=== PATIENT | male | born 1945 | race Caucasian/White ===

== ENCOUNTER 2016-11-18 18:04 | Emergency (ER) | payer MEDICARE, MEDICAID ==
[2016-11-18 20:05] LABS: Hematocrit 42 % (42-52); Hemoglobin 13.9 g/dl (14.0-18.0); Mean Corpuscular HGB Conc 33 g/dl (31-36); Mean Corpuscular Hemoglobin 32 pg (27-31); Mean Corpuscular Volume 98 fL (80-94); Mean Platelet Volume 8 um3 (7.4-10.4); Red Blood Count 4.31 10^6/ul (4.0-5.4); Red Cell Distribution Width 14 % (10.5-15); White Blood Count 3.8 10^3/ul (3.5-10.8)
[2016-11-18 20:20] LABS: BUN/Creatinine Ratio 20.2 (8-20); Calcium 8.6 mg/dL (8.6-10.3); EGFR African American 81.4 (>60); EGFR Non-African American 63.3 (>60); Globulin 2.9 g/dL (2-4); Potassium 3.5 mmol/L (3.5-5.0); Total Bilirubin 0.6 mg/dL (0.2-1.0); Total Protein 6.9 g/dL (6.4-8.9)
[2016-11-18 20:27] LABS: Troponin I 0.04 ng/mL (<0.04)
[2016-11-18 20:50] LABS: TSH (Thyroid Stimulating Horm) 3.25 mcIU/mL (0.34-5.60)
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
--- NOTE | 2016-11-19 05:58 | ED ---
Robert Dorado Matthew, scribed for Suleman Grover on 11/19/16 at 0556 . Progress - Progress Note Progress Note: The patient is a sign out from Dr. Vargas. He is in stable condition and will be discharged home when sober. Re-Evaluation - Re-Evaluation First Eval Re-Evaluation Time: 19:31 Comment: Further workup reveals that pt has a pacemaker. Pt continues to have no medical complaints at this time. Course/Dx - Diagnoses Provider Diagnoses: Alcohol intoxication The documentation as recorded by the Robert crews Matthew accurately reflects the service I personally performed and the decisions made by , Suleman Grover.
[2016-11-19 07:56] LABS: Urine Bilirubin Negative (Negative); Urine Glucose Negative (Negative); Urine Nitrite Negative (Negative)
[2016-11-19 10:56] VITALS: BP 131/69
--- NOTE | 2016-11-19 14:03 | ED ---
Frances Dorado Rebecca, scribed for Roger Lincoln MD on 11/19/16 at 1034 . Progress - Progress Note Progress Note: The pt was signed out from Dr. Grover. VITAL SIGNS: Reviewed. GENERAL: Patient is a well developed and nourished male who is lying comfortable in the stretcher. Patient is not in any acute respiratory distress. HEAD AND FACE: No signs of trauma. No ecchymosis, hematomas or skull depressions. No sinus tenderness. EYES: PERRLA, EOMI x 2, No injected conjunctiva, no nystagmus. No photophobia. EARS: Hearing grossly intact. Ear canals and tympanic membranes are within normal limits. MOUTH: Oropharynx within normal limits. NECK: Supple, trachea is midline, no adenopathy, no JVD, no carotid bruit, no c- spine tenderness, neck with full ROM. No meningeal signs, no Kernig's or brudzinskis signs. CHEST: Symmetric, no tenderness at palpation LUNGS: Clear to auscultation bilaterally. No wheezing or crackles. CVS: Regular rate and rhythm, S1 and S2 present, no murmurs or gallops appreciated. ABDOMEN: Soft, non-tender. No signs of distention. No rebound no guarding, and no masses palpated. Bowel sounds are normal. EXTREMITIES: FROM in all major joints, no edema, no cyanosis or clubbing. NEURO: Alert and oriented x 3. No acute neurological deficits. Speech is normal and follows commands. SKIN: Dry and warm The pt is AxOx3 and hemodynamically stable. He is sober, eating and drinking and has a good and steady walk. Therefore, pt will be D/C to home with a followup with his PCP. Course/Dx - Diagnoses Provider Diagnoses: Alcohol intoxication The documentation as recorded by the Frances crews Rebecca accurately reflects the service I personally performed and the decisions made by Salazar marquez Walter, MD.
== END 2016-11-19 10:55 | disposition home or self-care (01) ==
LOC: ED 18:04
DX: F10.129 Alcohol abuse with intoxication, unspecified (principal); Y90.8 Blood alcohol level of 240 mg/100 ml or more; Z87.891 Personal history of nicotine dependence; I48.92 Unspecified atrial flutter; Z95.0 Presence of cardiac pacemaker
CPT/HCPCS: 36415; 80053; 80320; 81003; 83605; 84443; 84484; 85025; 85610; 93005; 99284; G0480

== ENCOUNTER 2016-12-13 00:59 | Emergency (ER) | payer MEDICARE, MEDICAID ==
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
[2016-12-13 06:32] VITALS: BP 140/77
== END 2016-12-13 06:32 | disposition home or self-care (01) ==
LOC: ED 00:59
DX: F10.129 Alcohol abuse with intoxication, unspecified (principal); Z87.891 Personal history of nicotine dependence
CPT/HCPCS: 99282

== ENCOUNTER 2017-05-02 19:50 | Emergency (ER) | payer MEDICARE, MEDICAID ==
[2017-05-02] MEDS ORDERED: LORazepam INJ* 2 MG/ML 1 ML VIAL IM ONE (20:40)
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
[2017-05-03 05:05] VITALS: BP 114/76
--- NOTE | 2017-05-03 08:02 | ED ---
Progress - Progress Note Progress Note: pt received in sign out after evaluation for alcohol intoxication. Pt was brought in by [employer] for intoxication. Pt slept and ate. 0800: pt awake, standing in room, has no complaints. Is agreeable to discharge. Clinically sober. Will arrange transportation for pt. to what he considers "home". dx: alcohol intoxication disposition: home condition at discharge: stable Course/Dx - Course Course Of Treatment: Mr. Longoria was brought in 2208. He admitted to drinking ETOH. He is homeless. He is currently sleeping and will be D/C'd when he is awake and sober. - Diagnoses Provider Diagnoses: Alcohol intoxication
== END 2017-05-03 09:00 | disposition home or self-care (01) ==
LOC: ED 19:50
DX: F10.129 Alcohol abuse with intoxication, unspecified (principal); Y90.9 Presence of alcohol in blood, level not specified
CPT/HCPCS: 96372; 99283; J2060

== ENCOUNTER → 2017-05-06 14:59 | Emergency (ER) | payer MEDICARE, MEDICAID ==
[~2017-05-06 14:59] MED LIST: Tetan/Diph/Pertus SYR(Tdap)* 0.5 ML SYR(BOOSTRIX) use SYR IM ONE
[2017-05-06 16:03] VITALS: BP 176/93
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
== END | disposition home or self-care (01) ==
LOC: ED 14:59
DX: S01.01XA Laceration without foreign body of scalp, initial encounter (principal); S09.90XA Unspecified injury of head, initial encounter; Z87.891 Personal history of nicotine dependence; Y00.XXXA Assault by blunt object, initial encounter; Y92.009 Unspecified place in unspecified non-institutional (private) residence as the place of occurrence of the external cause; F10.129 Alcohol abuse with intoxication, unspecified
CPT/HCPCS: 12001; 70450; 90471; 90715; 99282

== ENCOUNTER 2017-07-02 21:17 | Emergency (ER) | payer MEDICARE, MEDICAID ==
[2017-07-02] MEDS ORDERED: Tetan/Diph/Pertus SYR(Tdap)* 0.5 ML SYR(BOOSTRIX) use SYR IM ONE (21:55)
[2017-07-02 22:36] LABS: Hematocrit 39 % (42-52); Hemoglobin 13.3 g/dl (14.0-18.0); Mean Corpuscular HGB Conc 34 g/dl (31-36); Mean Corpuscular Hemoglobin 34 pg (27-31); Mean Corpuscular Volume 101 fL (80-94); Mean Platelet Volume 8 um3 (7.4-10.4); Red Cell Distribution Width 13 % (10.5-15); White Blood Count 4.3 10^3/ul (3.5-10.8)
[2017-07-02 22:51] LABS: Albumin 3.7 g/dL (3.2-5.2); BUN/Creatinine Ratio 17.6 (8-20); Calcium 8.4 mg/dL (8.6-10.3); EGFR African American 86.4 (>60); EGFR Non-African American 67.2 (>60); Globulin 2.9 g/dL (2-4); Potassium 4.1 mmol/L (3.5-5.0); Total Bilirubin 0.7 mg/dL (0.2-1.0); Total Protein 6.6 g/dL (6.4-8.9); Troponin I 0.03 ng/mL (<0.04)
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
[2017-07-03] MEDS ORDERED: Cephalexin CAP* 500 MG PO ONE (01:05)
[2017-07-03 01:18] VITALS: BP 135/74
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
== END 2017-07-03 01:16 | disposition short-term general hospital (02) ==
LOC: ED 21:17
DX: S02.80XA Fracture of other specified skull and facial bones, unspecified side, initial encounter for closed fracture (principal); S02.40CA Maxillary fracture, right side, initial encounter for closed fracture; S02.2XXA Fracture of nasal bones, initial encounter for closed fracture; S05.31XA Ocular laceration without prolapse or loss of intraocular tissue, right eye, initial encounter; Z87.891 Personal history of nicotine dependence; W19.XXXA Unspecified fall, initial encounter; Y93.9 Activity, unspecified; Y92.9 Unspecified place or not applicable
CPT/HCPCS: 36415; 70450; 70486; 80053; 80320; 84484; 85025; 90471; 99284; A9270-GY; G0480

== ENCOUNTER 2017-08-13 19:47 | Emergency (ER) | payer MEDICARE, MEDICAID ==
[2017-08-13] MEDS ORDERED: NS 0.9% 1000 ML* 1,000 ML IV ONE (20:35)
[2017-08-13 21:25] LABS: Hematocrit 37 % (42-52); Hemoglobin 12.4 g/dl (14.0-18.0); Mean Corpuscular HGB Conc 33 g/dl (31-36); Mean Corpuscular Hemoglobin 34 pg (27-31); Mean Corpuscular Volume 101 fL (80-94); Mean Platelet Volume 9 um3 (7.4-10.4); Red Blood Count 3.68 10^6/ul (4.0-5.4); Red Cell Distribution Width 15 % (10.5-15); White Blood Count 6.3 10^3/ul (3.5-10.8)
--- NOTE | 2017-08-13 21:29 | RAD ---
INDICATION: Right foot pain/infection COMPARISON: None. TECHNIQUE: 3 views of the right foot were obtained. FINDINGS: The adequately corticated bones are properly aligned. Joint spaces appear maintained. No fracture, dislocation or focal bony abnormality is seen. There is moderate calcified atherosclerosis overlying the distal infrapopliteal arteries continuing into the pedal arteries. IMPRESSION: 1. NO ACUTE BONY ABNORMALITIES. 2. INCIDENTALLY NOTED IS COARSELY CALCIFIED ATHEROSCLEROSIS OF THE VISUALIZED ARTERIES. PLEASE CORRELATE TO SIGNS AND SYMPTOMS OF ARTERIAL INSUFFICIENCY. If the patient's symptoms persist, follow-up imaging is recommended.
[2017-08-13 21:36] LABS: C Reactive Protein 34.24 mg/L (< 5.00); Calcium 8.4 mg/dL (8.6-10.3); EGFR African American 94.5 (>60); EGFR Non-African American 73.5 (>60); Potassium 3.6 mmol/L (3.5-5.0); Total Bilirubin 1.5 mg/dL (0.2-1.0)
[2017-08-13] MEDS ORDERED: CMCS:Ketoconazole 2 % CREAM (NF) 30 GM TUBE TOPICAL SCH (22:00)
[2017-08-13 23:15] VITALS: BP 117/46
--- NOTE | 2017-08-20 00:58 | ED ---
Ese Dorado Abhishek, scribed for Evangelist Elaine MD on 08/13/17 at 2050 . Lower Extremity - HPI Summary HPI Summary: This patient is a 72 year old M presenting to [facility] with a chief complaint of right lower extremity skin complaint since 08/12/17. Pt states there were blood in his right sock and patient covered foot with plastic bag. Patient states he walks everywhere and for long periods of time. The patient rates the pain 4/10 in severity. Symptoms aggravated by ambulation. Symptoms alleviated by nothing. Patient reports bleeding from right pedal region and pain in right foot when palpated. - History of Current Complaint Chief Complaint: EDExtremityLower Stated Complaint: RT FOOT INJURY Time Seen by Provider: 08/13/17 20:20 Hx Obtained From: Patient Onset of Pain: Days - 08/12/17 Onset/Duration: Days - since 08/12/17 Severity Initially: Moderate Severity Currently: Moderate Pain Intensity: 4 Pain Scale Used: 0-10 Numeric Timing: Constant, Lasting Days - since 08/12/17 Associated Signs And Symptoms: Positive: Negative Aggravating Factor(s): Ambulation Alleviating Factor(s): Nothing - Allergies/Home Medications Allergies/Adverse Reactions: Allergies Allergy/AdvReac Type Severity Reaction Status Date / Time No Known Allergies Allergy Verified 07/02/17 23:52 PMH/Surg Hx/FS Hx/Imm Hx Endocrine/Hematology History: Denies: Hx Anticoagulant Therapy, Hx Diabetes, Hx Thyroid Disease Cardiovascular History: Reports: Hx Pacemaker/ICD Denies: Hx Hypertension Respiratory History: Denies: Hx Asthma, Hx Chronic Obstructive Pulmonary Disease (COPD) History: Denies: Hx Renal Disease Neurological History: Denies: Hx Dementia, Hx Seizures Psychiatric History: Denies: Hx Substance Abuse - Surgical History Surgery Procedure, Year, and Place: OPEN HEART, PACER - Immunization History Date of Tetanus Vaccine: Unsure Date of Influenza Vaccine: HUBER Infectious Disease History: No Infectious Disease History: Denies: Hx Hepatitis, Hx Human Immunodeficiency Virus (HIV), Traveled Outside the [place] in Last 30 Days - Family History Known Family History: Positive: Other - Patient is a poor historian Negative: Cardiac Disease, Hypertension, Diabetes - Social History Occupation: Unemployed Lives: Alone - homeless Alcohol Use: Daily Alcohol Amount: "x2 22oz beers" Hx Substance Use: No Substance Use Type: Reports: None Hx Tobacco Use: Yes Smoking Status (MU): Former Smoker Review of Systems Constitutional: Negative Eyes: Negative ENT: Negative Cardiovascular: Negative Respiratory: Negative Genitourinary: Negative Musculoskeletal: Other - Right foot pain when palpated Skin: Other - Right lower extremity (pedal region) skin complaint Positive: Other - Bleeding in RLE pedal region Neurological: Negative Psychological: Normal All Other Systems Reviewed And Are Negative: Yes Physical Exam - Summary Physical Exam Summary: VITAL SIGNS: Reviewed. GENERAL: Patient is unkempt (MALE ) who is lying comfortable in the stretcher. Patient is not in any acute respiratory distress. HEAD AND FACE: No signs of trauma. No ecchymosis, hematomas or skull depressions. No sinus tenderness. EYES: PERRLA, EOMI x 2, No injected conjunctiva, no nystagmus. EARS: Hearing grossly intact. Ear canals and tympanic membranes are within normal limits. MOUTH: Oropharynx within normal limits. NECK: Supple, trachea is midline, no adenopathy, no JVD, no carotid bruit, no c- spine tenderness, neck with full ROM. CHEST: Symmetric, no tenderness at palpation LUNGS: Clear to auscultation bilaterally. No wheezing or crackles. CVS: Regular rate and rhythm, S1 and S2 present, no murmurs or gallops appreciated. ABDOMEN: Soft, non-tender. No signs of distention. No rebound no guarding, and no masses palpated. Bowel sounds are normal. EXTREMITIES: RLE is Swollen, tender, and macerated NEURO: Alert and oriented x 3. No acute neurological deficits. Speech is normal and follows commands. SKIN: Dry and warm Triage Information Reviewed: Yes Vital Signs On Initial Exam: Initial Vitals Temp Pulse Resp BP Pulse Ox 97.8 F 87 20 128/65 98 08/13/17 19:51 08/13/17 19:51 08/13/17 19:51 08/13/17 19:51 08/13/17 19:51 Vital Signs Reviewed: Yes Diagnostics - Vital Signs Vital Signs Temp Pulse Resp BP Pulse Ox 08/13/17 19:51 97.8 F 87 20 128/65 98 - Laboratory Result Diagrams: 08/13/17 21:05 08/13/17 21:05 Lab Statement: Any lab studies that have been ordered have been reviewed, and results considered in the medical decision making process. - Radiology Foot X-ray Radiology Interpretation Completed By: Radiologist - Foot X-ray reveals, per radiologist, 1. NO ACUTE BONY ABNORMALITIES. 2. INCIDENTALLY NOTED IS COARSELY CALCIFIED ATHEROSCLEROSIS OF THE VISUALIZED ARTERIES. PLEASE CORRELATE TO SIGNS AND SYMPTOMS OF ARTERIAL INSUFFICIENCY. If the patient's symptoms persist, follow-up imaging is recommended. ED physician has reviewed this radiology report and agrees. Lower Extremity Course/Dx - Course Course Of Treatment: This patient is a 72 year old M presenting to [facility] with a chief complaint of right lower extremity skin complaint since 08/12/17. Pt states there were blood in his right sock and patient covered foot with plastic bag. Patient states he walks everywhere and for long periods of time. Symptoms aggravated by ambulation. Symptoms alleviated by nothing. Patient reports bleeding from right pedal region. Foot X-ray reveals, per radiologist, 1. NO ACUTE BONY ABNORMALITIES.2. INCIDENTALLY NOTED IS COARSELY CALCIFIED ATHEROSCLEROSIS OF THE VISUALIZED ARTERIES.PLEASE CORRELATE TO SIGNS AND SYMPTOMS OF ARTERIAL INSUFFICIENCY. If the patient's symptoms persist, follow- up imaging is recommended. ED physician has reviewed this radiology report and agrees. Pt leg are unremarkable and have no bacteria, Pt skin complaint is secondary to fungal infection and bad athletes foot, pt advised to have foot more in the air and without boots. Pt refused to go to a [facility]. Pt will be given Ketoconazole cream to apply as needed. Dx will be Right foot fungal infection. Pt will be discharged home. - Diagnoses Provider Diagnoses: Fungal infection right foot Discharge - Discharge Plan Condition: Stable Disposition: HOME Patient Education Materials: Antifungals (On the skin), Miconazole (On the skin ) Referrals: Deonna Marin MD [Primary Care Provider] - (Follow up with PCP. Return to ED in case of worsening symptoms or new symptoms/) The documentation as recorded by the Ese crews Abhishek accurately reflects the service I personally performed and the decisions made by , Evangelist Elaien MD.
== END 2017-08-13 23:21 | disposition home or self-care (01) ==
LOC: ED 19:47
DX: B35.3 Tinea pedis (principal); Z87.891 Personal history of nicotine dependence; Z95.810 Presence of automatic (implantable) cardiac defibrillator
CPT/HCPCS: 36415; 80053; 82550; 83605; 85025; 85610; 85730; 86140; 87040; 96360; 99284

== ENCOUNTER 2017-08-14 21:59 | Emergency (ER) | payer MEDICARE, MEDICAID ==
--- NOTE | 2017-08-15 04:55 | ED ---
Yannick Dorado Benjamin, scribed for Zenon Long MD on 08/15/17 at 0034 . Lower Extremity - HPI Summary HPI Summary: 72yo male c/o bilateral feet pain. Feet are red. Pt smells of ETO but denies alcohol intake. Pt was seen yesterday for fungal infection in his feet. LEVEL 5 caveat - ETOH intoxication - History of Current Complaint Chief Complaint: EDExtremityLower Stated Complaint: PAIN IN FEET Hx Obtained From: Patient Hx From Patient Unobtainable Due To: Other - ETOH intoxication Onset/Duration: Days Severity Initially: Moderate Severity Currently: Moderate Timing: Constant Location: Is Discrete @ - bilateral feet Associated Signs And Symptoms: Positive: Redness - Allergies/Home Medications Allergies/Adverse Reactions: Allergies Allergy/AdvReac Type Severity Reaction Status Date / Time No Known Allergies Allergy Verified 07/02/17 23:52 PMH/Surg Hx/FS Hx/Imm Hx Endocrine/Hematology History: Denies: Hx Anticoagulant Therapy, Hx Diabetes, Hx Thyroid Disease Cardiovascular History: Reports: Hx Pacemaker/ICD Denies: Hx Hypertension Respiratory History: Denies: Hx Asthma, Hx Chronic Obstructive Pulmonary Disease (COPD) History: Denies: Hx Renal Disease Neurological History: Denies: Hx Dementia, Hx Seizures Psychiatric History: Denies: Hx Substance Abuse - Surgical History Surgery Procedure, Year, and Place: OPEN HEART, PACER - Immunization History Date of Tetanus Vaccine: Unsure Date of Influenza Vaccine: HUBER Infectious Disease History: No Infectious Disease History: Denies: Hx Hepatitis, Hx Human Immunodeficiency Virus (HIV), Traveled Outside the [place] in Last 30 Days - Family History Known Family History: Positive: Unknown - Poor historian - Social History Alcohol Use: Daily Alcohol Amount: "x2 22oz beers" Hx Substance Use: No Substance Use Type: Reports: None Hx Tobacco Use: Yes Smoking Status (MU): Former Smoker Review of Systems Constitutional: Negative Eyes: Negative ENT: Negative Cardiovascular: Negative Respiratory: Negative Gastrointestinal: Negative Genitourinary: Negative Positive: Other - bilateral feet pain Positive: Other - redness in feet Neurological: Negative Psychological: Normal All Other Systems Reviewed And Are Negative: Yes Physical Exam - Summary Physical Exam Summary: Appearance: Intoxicated appearance. Somnolent. difficult to understand speech. Ambulating normally in the ED. Skin: Warm, Bilateral fungal rash on feet with erythema Eyes: Normal ENT: Normal Neck: Supple, nontender Respiratory: Clear to auscultation Cardiovascular: Normal, Normal capillary refill. Good distal pulses Abdomen: Soft, nontender Bowel: Present Musculoskeletal: Normal, Strength/ROM Intact Neurological: Normal, Intoxicated Psychiatric: Normal Triage Information Reviewed: Yes Vital Signs On Initial Exam: Initial Vitals Temp Pulse Resp BP Pulse Ox 97.8 F 89 20 126/59 99 08/14/17 22:08 08/14/17 22:08 08/14/17 22:08 08/14/17 22:08 08/14/17 22:08 Vital Signs Reviewed: Yes - [place] Coma Scale Coma Scale Total: 15 Diagnostics - Vital Signs Vital Signs Temp Pulse Resp BP Pulse Ox 08/14/17 22:08 97.8 F 89 20 126/59 99 - Laboratory Lab Statement: Any lab studies that have been ordered have been reviewed, and results considered in the medical decision making process. Lower Extremity Course/Dx - Course Assessment/Plan: instructed to continue antifungal cream at home, referred to beater engineer helper, agrees to and understands dc instructions - Diagnoses Provider Diagnoses: Fungal dermatitis Discharge - Discharge Plan Condition: Stable Disposition: HOME Prescriptions: Miconazole Nitrate (Topical) [Miconazole] 2 % EX DAILY #1 cre Patient Education Materials: Athlete's Foot (ED) Referrals: Deonna Marin MD [Primary Care Provider] - Polo Lopez DPM [Doctor of Podiatric Medicine] - Additional Instructions: PLEASE RETURN TO THE ED FOR ANY WORSENING OR CONCERNING SYMPTOMS. PLEASE MAKE AN APPOINTMENT TO SEE YOUR PRIMARY CARE DOCTOR TO BE SEEN WITHIN 1 WEEK. PLEASE MAKE AN APPOINTMENT TO SEE A METER REPAIRER HELPER TO BE SEEN WITHIN 1 WEEK. The documentation as recorded by the Yannick crews Benjamin accurately reflects the service I personally performed and the decisions made by , Zenon Long MD.
[2017-08-15 06:45] VITALS: BP 133/74
== END 2017-08-15 06:43 | disposition home or self-care (01) ==
LOC: ED 21:59
DX: B35.3 Tinea pedis (principal); F10.129 Alcohol abuse with intoxication, unspecified; Z95.0 Presence of cardiac pacemaker; Z87.891 Personal history of nicotine dependence
CPT/HCPCS: 99282

== ENCOUNTER 2017-10-02 16:26 | Emergency (ER) | payer MEDICARE, MEDICAID ==
--- NOTE | 2017-10-02 18:09 | ED ---
Substance Abuse/Use - HPI Summary HPI Summary: 72 male presents to ED by [facility] as a 2208 after being found sitting in a mud puddle, intoxicated. Patient states he has been drinking, "but not that much". Denies falling or any trauma. Denies any pain anywhere. Only complaint is a productive cough that he has had over the past few days that he thinks is a cold. Has been taking vitamin C. Denies fever, nausea, vomiting, chest pain, trouble breathing and SOB. No other complaints. States "I feel fine". Has cardiac hx. No known drug use, previous smoker. Level 5 caveat- ETOH intoxication. has been drinking daily for years, does not want to stop at this time. denies abdominal pain. is homeless. Denies SI/HI or drinking in attempt to hurt himself. No fall or trauma. - History Of Current Complaint Chief Complaint: EDSubstanceAbuse Stated Complaint: 2208 Time Seen by Provider: 10/02/17 17:23 Hx Obtained From: Patient, Other: - [facility] Onset/Duration of Drug/ETOH Abuse: Hours Ingestion History: Type/Name Of Drug - beer/liqour, Amount Ingested - unknown Overdose Characteristics: Oral Timing Of Abuse: Daily Character: Other - slightly slurring words and stuporous however answering questions appropriately and walking around, dressing self Aggravating Factor(s): Nothing Alleviating Factor(s): Medication - vitamin c Associated Signs And Symptoms: Agitated, Cough - Allergies/Home Medications Allergies/Adverse Reactions: Allergies Allergy/AdvReac Type Severity Reaction Status Date / Time No Known Allergies Allergy Verified 10/02/17 17:21 Home Medications: Home Medications Apixaban* [Eliquis*] 5 mg PO BID 10/02/17 [History Confirmed 10/02/17] Furosemide TAB* [Lasix TAB*] 20 mg PO DAILY 10/02/17 [History Confirmed 10/02/17 ] Metoprolol Succinate XL TAB* [Toprol XL TAB*] 25 mg PO DAILY 10/02/17 [History Confirmed 10/02/17] Potassium Chlor TAB* [Klor Con ER TAB*] 20 meq PO DAILY 10/02/17 [History Confirmed 10/02/17] PMH/Surg Hx/FS Hx/Imm Hx Endocrine/Hematology History: Denies: Hx Anticoagulant Therapy, Hx Diabetes, Hx Thyroid Disease Cardiovascular History: Reports: Hx Pacemaker/ICD Denies: Hx Hypertension Respiratory History: Denies: Hx Asthma, Hx Chronic Obstructive Pulmonary Disease (COPD) History: Denies: Hx Renal Disease Neurological History: Denies: Hx Dementia, Hx Seizures Psychiatric History: Denies: Hx Substance Abuse - Surgical History Surgery Procedure, Year, and Place: OPEN HEART, PACER - Immunization History Date of Tetanus Vaccine: 2017 Date of Influenza Vaccine: HUBER Immunizations Up to Date: Yes Infectious Disease History: No Infectious Disease History: Denies: Hx Hepatitis, Hx Human Immunodeficiency Virus (HIV), Traveled Outside the [place] in Last 30 Days - Family History Known Family History: Positive: Unknown - Poor historian - Social History Lives: Alone - homeless Alcohol Use: Daily Alcohol Amount: " I don't keep track of how much beer i drink - today not enough " 2 22oz Hx Substance Use: No Substance Use Type: Reports: None Hx Tobacco Use: Yes Smoking Status (MU): Former Smoker Review of Systems Constitutional: Negative Cardiovascular: Negative Positive: Cough Gastrointestinal: Negative Musculoskeletal: Negative Neurological: Negative All Other Systems Reviewed And Are Negative: Yes Physical Exam Triage Information Reviewed: Yes Vital Signs On Initial Exam: Initial Vitals Temp Pulse Resp BP Pulse Ox 98.9 F 89 18 100/77 97 10/02/17 17:17 10/02/17 17:17 10/02/17 17:17 10/02/17 17:17 10/02/17 17:17 Vital Signs Reviewed: Yes Appearance: Positive: Well-Appearing - Intoxicated appearance. Somnolent. difficult to understand speech. Ambulating normally in the ED., No Pain Distress , Well-Nourished Skin: Positive: Warm, Skin Color Reflects Adequate Perfusion, Dry, Cold, Other - no signs of trauma, deformity or bruising Head/Face: Positive: Normal Head/Face Inspection. Negative: Scalp Eyes: Positive: Normal, EOMI, ARIADNA, Conjunctiva Clear ENT: Positive: Normal ENT inspection, Hearing grossly normal, Pharynx normal Neck: Positive: Supple, Nontender, Other: - large nodular tumor like appearance noted to right neck Respiratory/Lung Sounds: Positive: Clear to Auscultation, Decreased Breath Sounds, Wheezes - diffuse bilaterally lower lung millard. Negative: Rales, Rhonchi Cardiovascular: Positive: Normal, RRR, Pulses are Symmetrical in both Upper and Lower Extremities. Negative: Murmur, Rub Abdomen Description: Positive: Nontender, Soft Bowel Sounds: Positive: Present Musculoskeletal: Positive: Normal, Strength/ROM Intact Neurological: Positive: Normal, Sensory/Motor Intact, Alert, Oriented to Person Place, Time, Normal Gait - Cy Coma Scale Best Eye Response: 4 - Spontaneous Best Motor Response: 6 - Obeys Commands Best Verbal Response: 5 - Oriented Coma Scale Total: 15 Diagnostics - Vital Signs Vital Signs Temp Pulse Resp BP Pulse Ox 10/02/17 17:30 85 20 117/51 99 10/02/17 17:17 98.9 F 89 18 100/77 97 - Laboratory Lab Statement: Any lab studies that have been ordered have been reviewed, and results considered in the medical decision making process. - Radiology chest Xray Interpretation: No Acute Changes - MILD INTERSTITIAL EDEMA APPEARING SIMILAR TO THAT SEEN ON SEPTEMBER 10, 2014. Radiology Interpretation Completed By: Radiologist - and myself Re-Evaluation - Re-Evaluation First Eval Re-Evaluation Time: 21:00 Change: Improved - had relief after duoneb Second Eval Re-Evaluation Time: 11:00 Change: Improved - patient sleeping comfortably, normal vitals and still responsive Third Eval Re-Evaluation Time: 13:30 Change: Unchanged - patient ready to be d/c serum alcohol lower and patient no longer stuporus and acting appropriately Course/Dx - Course Course Of Treatment: serum alcohol obtained and 237. patient intoxicated. normal vitals. due to PE findings of wheezing and decreased lung sounds along with complaint of cough chest xray obtained and given duoneb. had relief. chest xray revealed MILD INTERSTITIAL EDEMA APPEARING SIMILAR TO THAT SEEN ON SEPTEMBER 10, 2014. no acute findings or pneumonia. patient afebrile. spoke with Dr Murray about case who also agrees no further work up required at this time. patient asymptomatic other than intoxication. no trauma or injury noted or stated therefore no required imaging. level 5 caveat. 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 encouraged work up with pcp. glucose check and 111. patient was observed until sober, and lower serum alcohol, able to take care of himself and was discharged. no other complaints. refused to go to a penitentiary. follow up with PCP. encouraged fluids, decongestants and rest for URI. aware of worsening signs and symptoms to watch out for. patient agrees, understands and wants to go home. given food, clothes and equipment from [facility] and during stay in ED. - Diagnoses Differential Diagnosis/HQI/PQRI: Positive: Alcohol Abuse, Other - URI, cough, interstitial edema Provider Diagnoses: Alcohol intoxication, URI (upper respiratory infection) Discharge - Discharge Plan Condition: Stable Disposition: HOME Patient Education Materials: Upper Respiratory Infection (ED), Alcohol Intoxication (ED), Abuse of Alcohol (ED) Referrals: Deonna Marin MD [Primary Care Provider] - Additional Instructions: Follow up with PCP. Fluids, rest and decongestants for cough and URI. Continue vitamin c. Refrain from alcohol. Suggest going to penitentiary. Return if any new, worsening or persistent symptoms, as discussed.
[2017-10-02] MEDS ORDERED: Albuterol/Ipratropium NEB.SOL* Albuterol 2.5 MG/Ipratropium 0.5 MG 3 ML INH ONE (20:09)
--- NOTE | 2017-10-02 21:43 | RAD ---
Indication: Pneumonia. Single frontal view of the chest performed at 2023 hours was reviewed. Comparison is made with previous exam dated September 10, 2014. No mediastinal shift is noted. Patient is status post changed sternal thoracotomy. Mild interstitial edema is noted. Pacemaker leads are in place. No alveolar consolidation is noted. IMPRESSION: MILD INTERSTITIAL EDEMA APPEARING SIMILAR TO THAT SEEN ON SEPTEMBER 10, 2014.
[2017-10-03 02:57] VITALS: BP 119/69
== END 2017-10-03 02:56 | disposition home or self-care (01) ==
LOC: ED 16:26
DX: F10.129 Alcohol abuse with intoxication, unspecified (principal); Y90.7 Blood alcohol level of 200-239 mg/100 ml; J06.9 Acute upper respiratory infection, unspecified; J81.1 Chronic pulmonary edema; Z95.0 Presence of cardiac pacemaker; Z87.891 Personal history of nicotine dependence
CPT/HCPCS: 36415; 71045; 80320; 99282; A9270-GY; G0480

== ENCOUNTER 2017-10-25 14:57 | Emergency (ER) | payer MEDICARE, MEDICAID ==
[2017-10-25] MEDS ORDERED: Haloperidol INJ IV/IM* 5 MG/ML AMP ONE (15:15)
[2017-10-25] MEDS ORDERED: diPHENhydraMINE IV* 50 MG/ML 1 ml VIAL (BENADRYL) ONE (15:15)
[2017-10-25] MEDS ORDERED: LORazepam INJ* 2 MG/ML 1 ML VIAL ONE (15:15)
[2017-10-25 16:54] LABS: ABS Basophils 0 10^3/ul (0-0.2); ABS Eosinophils 0 10^3/ul (0-0.6); ABS Lymphocytes 0.7 10^3/ul (1.0-4.8); ABS Monocytes 0.2 10^3/ul (0-0.8); ABS Neutrophils 1.3 10^3/ul (1.5-7.7); ABS Nucleated RBC 0 10^3/ul; Eosinophil % 1.3 % (0-6); Hematocrit 37 % (42-52); Hemoglobin 12.1 g/dl (14.0-18.0); Lymphocyte % 30.5 % (25-47); Mean Corpuscular HGB Conc 33 g/dl (31-36); Mean Corpuscular Hemoglobin 33 pg (27-31); Mean Corpuscular Volume 100 fL (80-94); Mean Platelet Volume 8 um3 (7.4-10.4); Nucleated Red Blood Cells % 0.1; Platelet Count 108 10^3/ul (150-450); Red Blood Count 3.68 10^6/ul (4.0-5.4); Red Cell Distribution Width 14 % (10.5-15); White Blood Count 2.3 10^3/ul (3.5-10.8)
[2017-10-25 17:21] LABS: EGFR Non-African American 78.9 (>60)
--- NOTE | 2017-10-26 03:24 | ED ---
Kat Dorado Nilda, scribed for Karson Levi MD on 10/25/17 at 1913 . Progress - Progress Note Progress Note: This patient was s/o by Dr. Lincoln, pending disposition, awaiting alcohol metabolism. Course/Dx - Course Course Of Treatment: DISCHARGED HOME - Diagnoses Provider Diagnoses: Alcohol intoxication The documentation as recorded by the sundeepibKat levy Nilda accurately reflects the service I personally performed and the decisions made by , Karson Levi MD.
[2017-10-26 04:47] VITALS: BP 140/92
--- NOTE | 2017-10-27 15:58 | ED ---
Montrell Dorado Angela, scribed for Roger Lincoln MD on 10/25/17 at 1522 . Substance Abuse/Use - HPI Summary HPI Summary: This pt is a 72 y/o male presents to [facility] via EMS for a 2208. Per EMS, pt is intoxicated. EMS reports the pt is aggressive, not cooperative and making inappropriate statements. Pt had an empty bottle of blackberry yomi Mr. Yo. HPI IS LIMITED DUE TO LEVEL 5 CAVEAT - EtOH intoxication. - History Of Current Complaint Stated Complaint: 2208 Hx Obtained From: EMS Hx From Patient Unobtainable Due To: Other - pt is intoxicated Onset/Duration of Drug/ETOH Abuse: Hours Ingestion History: Type/Name Of Drug - alcohol Overdose Characteristics: Oral Timing Of Abuse: Daily Severity Currently: Moderate Character: Stuporous Aggravating Factor(s): Nothing Alleviating Factor(s): Nothing Associated Signs And Symptoms: Negative - Allergies/Home Medications Allergies/Adverse Reactions: Allergies Allergy/AdvReac Type Severity Reaction Status Date / Time No Known Allergies Allergy Verified 10/02/17 17:21 PMH/Surg Hx/FS Hx/Imm Hx Endocrine/Hematology History: Denies: Hx Anticoagulant Therapy, Hx Diabetes, Hx Thyroid Disease Cardiovascular History: Reports: Hx Pacemaker/ICD Denies: Hx Hypertension Respiratory History: Denies: Hx Asthma, Hx Chronic Obstructive Pulmonary Disease (COPD) History: Denies: Hx Renal Disease Neurological History: Denies: Hx Dementia, Hx Seizures Psychiatric History: Denies: Hx Substance Abuse - Surgical History Surgery Procedure, Year, and Place: OPEN HEART, PACER - Immunization History Date of Tetanus Vaccine: 2016 Date of Influenza Vaccine: HUBER Infectious Disease History: Denies: Hx Hepatitis, Hx Human Immunodeficiency Virus (HIV) - Family History Known Family History: Positive: Unknown - level 5 caveat - pt is intoxicated - Social History Alcohol Use: Daily Alcohol Amount: " I don't keep track of how much beer i drink - today not enough " 2 22oz Hx Substance Use: No Substance Use Type: Reports: None Hx Tobacco Use: Yes Smoking Status (MU): Former Smoker Review of Systems - ROS Summary Review of Systems Summary: ROS IS LIMITED DUE TO LEVEL 5 CAVEAT - alcohol intoxication Negative: Fever, Chills Psychological: Other - intoxicated, yelling All Other Systems Reviewed And Are Negative: No Physical Exam - Summary Physical Exam Summary: VITAL SIGNS: Reviewed. GENERAL: Patient is an elderly male with poor hygiene. Patient is not in any acute respiratory distress. HEAD AND FACE: No signs of trauma. No ecchymosis, hematomas or skull depressions. No sinus tenderness. EYES: PERRLA, EOMI x 2, No injected conjunctiva, no nystagmus. EARS: Hearing grossly intact. Ear canals and tympanic membranes are within normal limits. MOUTH: Oropharynx within normal limits. NECK: Supple, trachea is midline, no adenopathy, no JVD, no carotid bruit, no c- spine tenderness, neck with full ROM. CHEST: Symmetric, no tenderness at palpation LUNGS: Clear to auscultation bilaterally. No wheezing or crackles. CVS: Regular rate and rhythm, S1 and S2 present, no murmurs or gallops appreciated. ABDOMEN: Soft, non-tender. No signs of distention. No rebound no guarding, and no masses palpated. Bowel sounds are normal. EXTREMITIES: FROM in all major joints, no edema, no cyanosis or clubbing. NEURO: Alert and oriented x 3. No acute neurological deficits. Speech is normal and follows commands. SKIN: Dry and warm PSYCH: Pt is agitated and is aggressive. Triage Information Reviewed: Yes Vital Signs On Initial Exam: Initial Vitals Temp Pulse Resp BP Pulse Ox 98.8 F 93 20 128/72 96 10/25/17 15:10 10/25/17 15:10 10/25/17 15:10 10/25/17 15:10 10/25/17 15:10 Vital Signs Reviewed: Yes Diagnostics - Vital Signs Vital Signs Temp Pulse Resp BP Pulse Ox 10/26/17 02:32 98.7 F 72 18 140/92 95 10/26/17 01:30 38 14 141/95 95 10/26/17 01:00 62 13 133/74 97 10/26/17 00:30 89 13 111/76 95 10/26/17 00:02 77 13 137/75 96 10/26/17 00:00 85 13 147/85 96 10/25/17 23:00 66 13 97 10/25/17 22:30 82 16 150/107 97 10/25/17 22:00 73 12 123/75 96 10/25/17 21:30 63 13 135/80 95 10/25/17 21:27 46 17 96 10/25/17 21:00 68 15 141/84 97 10/25/17 20:00 122/56 10/25/17 19:30 67 13 131/88 97 10/25/17 19:00 76 13 123/86 95 10/25/17 18:30 72 14 127/89 98 10/25/17 18:00 72 12 125/78 96 10/25/17 17:30 71 14 120/72 94 10/25/17 17:00 84 14 113/76 92 10/25/17 16:30 81 14 97/57 89 10/25/17 16:00 127 15 103/59 91 10/25/17 15:30 92 18 110/74 89 10/25/17 15:21 101 18 95 10/25/17 15:20 128/72 10/25/17 15:10 98.8 F 93 20 128/72 96 - Laboratory Lab Results: Lab Results 10/25/17 10/25/17 Range/Units 16:45 16:45 WBC 2.3 L (3.5-10.8) 10^3/ul RBC 3.68 L (4.0-5.4) 10^6/ul Hgb 12.1 L (14.0-18.0) g/dl Hct 37 L (42-52) % MCV 100 H (80-94) fL MCH 33 H (27-31) pg MCHC 33 (31-36) g/dl RDW 14 (10.5-15) % Plt Count 108 L (150-450) 10^3/ul MPV 8 (7.4-10.4) um3 Neut % (Auto) 57.7 (38-83) % Lymph % (Auto) 30.5 (25-47) % [place] % (Auto) 9.2 H (1-9) % Eos % (Auto) 1.3 (0-6) % Baso % (Auto) 1.3 (0-2) % Absolute Neuts (auto) 1.3 L (1.5-7.7) 10^3/ul Absolute Lymphs (auto) 0.7 L (1.0-4.8) 10^3/ul Absolute Monos (auto) 0.2 (0-0.8) 10^3/ul Absolute Eos (auto) 0 (0-0.6) 10^3/ul Absolute Basos (auto) 0 (0-0.2) 10^3/ul Absolute Nucleated RBC 0 10^3/ul Nucleated RBC % 0.1 Sodium 144 (133-145) mmol/L Potassium 3.5 (3.5-5.0) mmol/L Chloride 110 (101-111) mmol/L Carbon Dioxide 26 (22-32) mmol/L Anion Gap 8 (2-11) mmol/L BUN 14 (6-24) mg/dL Creatinine 0.94 (0.67-1.17) mg/dL Est GFR ( Amer) 101.5 (>60) Est GFR (Non-Af Amer) 78.9 (>60) BUN/Creatinine Ratio 14.9 (8-20) Glucose 75 (70-100) mg/dL Calcium 8.2 L (8.6-10.3) mg/dL Total Bilirubin 0.80 (0.2-1.0) mg/dL AST 44 H (13-39) U/L ALT 23 (7-52) U/L Alkaline Phosphatase 72 (34-104) U/L Total Protein 6.1 L (6.4-8.9) g/dL Albumin 3.5 (3.2-5.2) g/dL Globulin 2.6 (2-4) g/dL Albumin/Globulin Ratio 1.3 (1-3) TSH 1.45 (0.34-5.60) mcIU/mL Salicylates < 2.50 (<30) mg/dL Acetaminophen < 15 mcg/mL Serum Alcohol 301 H (<10) mg/dL Result Diagrams: 10/25/17 16:45 10/25/17 16:45 Lab Statement: Any lab studies that have been ordered have been reviewed, and results considered in the medical decision making process. Course/Dx - Course Assessment/Plan: This pt is a 72 y/o male presents to [facility] via EMS for a 2209. Per EMS, pt is intoxicated. EMS reports the pt is aggressive, not cooperative and making inappropriate statements. Pt had an empty bottle of blackberry yomi Mr. Yo. HPI IS LIMITED DUE TO LEVEL 5 CAVEAT - EtOH intoxication. In the ED pt is agitated, aggressive and a danger to himself and others. Therefore he was given Benadryl, Ativan, and Haldol. The pt has alcohol intoxication. Test results show WBC of 2.3, slight anemia, alcohol level of 301. This pt will be signed out to Dr. Levi to observe the pt and follow up the alcohol level. Pt can be discharged to home when the pt is hemodynamically stable, alert and oriented x3, and with normal cognition. - Diagnoses Differential Diagnosis/HQI/PQRI: Positive: Alcohol Abuse, Alcohol Withdrawal, Anxiety Provider Diagnoses: Alcohol intoxication Discharge - Discharge Plan Condition: Stable Disposition: HOME Discharge Disposition Comment: signed out to Dr. Levi, pending dispo, awaiting alcohol metabolism. Patient Education Materials: Alcohol Intoxication (ED) Referrals: Deonna Marin MD [Primary Care Provider] - The documentation as recorded by the Montrell crews Angela accurately reflects the service I personally performed and the decisions made by me, Roger Lincoln MD.
== END 2017-10-26 02:32 | disposition home or self-care (01) ==
LOC: ED 14:57
DX: F10.129 Alcohol abuse with intoxication, unspecified (principal); Y90.8 Blood alcohol level of 240 mg/100 ml or more; Z87.891 Personal history of nicotine dependence
CPT/HCPCS: 36415; 80053; 80320; 80329; 84443; 85025; 96374; 96375; 99284; G0480; J1200; J1630; J2060

== ENCOUNTER → 2018-09-23 16:32 | Emergency (ER) | payer MEDICARE, MEDICAID ==
[~2018-09-23 16:32] MED LIST changes: +LORazepam TAB(*) 1 MG PO ONE; -Tetan/Diph/Pertus SYR(Tdap)* 0.5 ML SYR(BOOSTRIX) use SYR IM ONE
--- NOTE | 2018-09-23 17:07 | ED ---
Complex/Multi-Sys Presentation - HPI Summary HPI Summary: A 73 y/o male presents to the ED accompanied by EMS and Police. As per EMS, they were called by [employer] because the patient was drunk and not moving, however, he appeared to be alert. He was found outside on the sidewalk. Patient was not violent en route, however, he just seems drunk. The patient seems to be aggravated at this point. Could not get vitals on patient because he has several layers on him, however, he was stable. In the ED room, the patient seems very agitated and talks gibberish. Patient does not answer MD questions and is a poor historian. LEVEL 5 CAVEAT - PATIENT IS INTOXICATED. PATIENT WILL BE SIGNED OUT TO DR. PATRICIA ELAINE VIA DR. SYLWIA VARGAS, PENDING SOBRIETY AT 0330 (09/24/2018), ON SHIFT CHANGE ON 09/23/2018 AT 2200. - History Of Current Complaint Time Seen by Provider: 09/23/18 16:48 Hx Obtained From: EMS - LEVEL 5 CAVEAT - PATIENT IS INTOXICATED. Hx From Patient Unobtainable Due To: Other - LEVEL 5 CAVEAT - PATIENT IS INTOXICATED. Onset/Duration: Still Present Timing: Constant Severity Currently: None Location: Negative Character: Unable To Describe Aggravating Factor(s): NOTHING Alleviating Factor(s): NOTHING Associated Signs And Symptoms: Positive: Other - LEVEL 5 CAVEAT - PATIENT IS INTOXICATED. - Allergies/Home Medications Allergies/Adverse Reactions: Allergies Allergy/AdvReac Type Severity Reaction Status Date / Time No Known Allergies Allergy Verified 10/02/17 17:21 PMH/Surg Hx/FS Hx/Imm Hx Endocrine/Hematology History: Denies: Hx Anticoagulant Therapy, Hx Diabetes, Hx Thyroid Disease Cardiovascular History: Reports: Hx Pacemaker/ICD Denies: Hx Hypertension Respiratory History: Denies: Hx Asthma, Hx Chronic Obstructive Pulmonary Disease (COPD) History: Denies: Hx Renal Disease Neurological History: Denies: Hx Dementia, Hx Seizures Psychiatric History: Denies: Hx Substance Abuse - Surgical History Surgery Procedure, Year, and Place: OPEN HEART, PACER - Immunization History Date of Tetanus Vaccine: 2016 Date of Influenza Vaccine: HUBER Infectious Disease History: Denies: Hx Hepatitis, Hx Human Immunodeficiency Virus (HIV), Traveled Outside the [place] in Last 30 Days - Family History Known Family History: Positive: Unknown - level 5 caveat - pt is intoxicated - Social History Alcohol Use: Daily Alcohol Amount: " I don't keep track of how much beer i drink - today not enough " 2 22oz Hx Substance Use: No Substance Use Type: Reports: None Hx Tobacco Use: Yes Smoking Status (MU): Former Smoker Review of Systems Negative: Fever All Other Systems Reviewed And Are Negative: No - Comments Additional Review of Systems Comments: LEVEL 5 CAVEAT - PATIENT IS INTOXICATED. Physical Exam - Summary Physical Exam Summary: Appearance: The patient is well-nourished in no acute distress and in no acute pain. Skin: The skin is warm and dry and skin color reflects adequate perfusion. HEENT: The head is normocephalic and atraumatic. The pupils are equal and reactive. The conjunctivae are clear and without drainage. Nares are patent and without drainage. Mouth reveals moist mucous membranes and the throat is without erythema and exudate. The external ears are intact. The ear canals are patent and without drainage. The tympanic membranes are intact. Neck: The neck is supple with full range of motion and non-tender. There are no carotid bruits. There is no neck vein distension. Respiratory: Chest is non-tender. Lungs are clear to auscultation and breath sounds are symmetrical and equal. Cardiovascular: Heart is regular rate and rhythm. There is no murmur or rub auscultated. There is no peripheral edema and pulses are symmetrical and equal. Abdomen: The abdomen is soft and non-tender. There are normal bowel sounds heard in all four quadrants and there is no organomegaly palpated. Musculoskeletal: There is no back tenderness noted. Extremities are non-tender with full range of motion. There is good capillary refill. There is no peripheral edema or calf tenderness elicited. Neurological: Patient is alert and oriented to person, place and time. The patient has symmetrical motor strength in all four extremities. Cranial nerves are grossly intact. Deep tendon reflexes are symmetrical and equal in all four extremities. Psychiatric: The patient has an appropriate affect and does not exhibit any anxiety or depression. LEVEL 5 CAVEAT Triage Information Reviewed: Yes Vital Signs Reviewed: Yes Complex Multi-Symp Course/Dx Course Of Treatment: PATIENT WILL BE SIGNED OUT TO DR. PATRICIA ELAINE VIA DR. SYLWIA VARGAS, PENDING SOBRIETY AT 0330 (09/24/2018), ON SHIFT CHANGE ON 2018 AT 2200. - Diagnoses Provider Diagnoses: Alcohol intoxication Discharge - Sign-Out/Discharge Documenting (check all that apply): Sign-Out Patient - KEELEYFAR Signing out patient TO: Patricia Elaine Receiving patient FROM: Sylwia Vargas - Discharge Plan Condition: Stable Referrals: Steven Cabello MD [Primary Care Provider] - - Billing Disposition and Condition Condition: STABLE - Attestation Statements Document Initiated by Time: Yes Documenting Scribe: Tez Holley Provider For Whom Shasta is Documenting (Include Credential): Sylwia Vargas MD Scribe Attestation: Tez Dorado, scribed for Sylwia Vargas MD on 09/23/18 at 2153. Scribe Documentation Reviewed: Yes Provider Attestation: The documentation as recorded by the Tez crews accurately reflects the service I personally performed and the decisions made by me, Sylwia Vargas MD Status of Scribe Document: Viewed
--- NOTE | 2018-09-24 03:58 | ED ---
Progress - Progress Note Progress Note: Patient was signed out from Dr. Vargas pending sobriety. Course/Dx - Course Course Of Treatment: Patient was signed out from Dr. Vargas upon shift change pending sobriety. Patient will be discharged home with follow up from PCP. - Diagnoses Provider Diagnoses: Alcohol intoxication Discharge - Sign-Out/Discharge Documenting (check all that apply): Patient Departure - Discharge home - Discharge Plan Condition: Stable Disposition: HOME Patient Education Materials: Alcohol Intoxication (ED) Referrals: Steven Cabello MD [Primary Care Provider] - 2 Days Additional Instructions: RETURN TO THE EMERGENCY DEPARTMENT FOR NEW OR WORSENING SYMPTOMS - Attestation Statements Document Initiated by Scribe: Yes Documenting Scribe: Sara Prieto Provider For Whom Scribe is Documenting (Include Credential): Dr. Evangelist Elaine MD Scribe Attestation: Sara Dorado, scribed for Dr. Evangelist Elaine MD on 09/24/18 at 0358. Status of Scribe Document: Ready
[2018-09-24 04:09] VITALS: BP 98/74
== END | disposition home or self-care (01) ==
LOC: ED 16:32
DX: F10.129 Alcohol abuse with intoxication, unspecified (principal); Z87.891 Personal history of nicotine dependence
CPT/HCPCS: 36415; 80320; 96360; 96361; 99282; A9270-GY; G0480

== ENCOUNTER 2018-09-24 17:17 | Emergency (ER) | payer MEDICARE, MEDICAID ==
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
--- NOTE | 2018-09-24 22:00 | ED ---
Progress - Progress Note Progress Note: Patient was signed out from Dr. Emerson Vargas to Dr. Emerson Jaeger during a shift change at 22:00, pending sobriety. Re-Evaluation - Re-Evaluation First Eval Re-Evaluation Time: 20:01 Change: Unchanged Comment: Patient is requesting blankets Course/Dx - Course Course Of Treatment: Mr. Longoria return to the emergency department today in the company of the police and the ambulance. He had been found in the street intoxicated again and was unable to get up and walk away. He was not toxic in appearance and his vitals were stable on arrival. At this point his blood alcohol is returned at 288 and I estimate he should be sober about 1:30 or 2 in the morning. He is being observed for his safety. - Diagnoses Provider Diagnoses: Alcohol intoxication Discharge - Sign-Out/Discharge Documenting (check all that apply): Receiving Sign-Out Receiving patient FROM: Emerson Vargas - Pending sobriety - Discharge Plan Condition: Stable Referrals: Steven Cabello MD [Primary Care Provider] - - Attestation Statements Document Initiated by Scribe: Yes Documenting Scribe: David Salinas Provider For Whom Scribe is Documenting (Include Credential): Emerson Jaeger MD Scribe Attestation: David Dorado, scribed for Emerson Jaeger MD on 09/24/18 at 2200.
[2018-09-25 00:23] VITALS: BP 98/64
== END 2018-09-25 02:49 | disposition home or self-care (01) ==
LOC: ED 17:17
DX: F10.129 Alcohol abuse with intoxication, unspecified (principal); Z87.891 Personal history of nicotine dependence
CPT/HCPCS: 36415; 80320; 99282; G0480

== ENCOUNTER 2019-05-14 19:02 | Emergency (ER) | payer MEDICARE, MEDICAID ==
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
[2019-05-14 20:22] LABS: ABS Lymphocytes 0.8 10^3/ul (1.0-4.8); ABS Monocytes 0.6 10^3/ul (0-0.8); ABS Neutrophils 2.7 10^3/ul (1.5-7.7); Eosinophil % 0.9 %; Hematocrit 38 % (42-52); Hemoglobin 12.9 g/dL (14.0-18.0); Lymphocyte % 18.2 %; Mean Corpuscular HGB Conc 34 g/dL (31-36); Mean Corpuscular Hemoglobin 34 pg (27-31); Mean Corpuscular Volume 99 fL (80-94); Mean Platelet Volume 8.2 fL (7.4-10.4); Nucleated Red Blood Cells % 0.1; Platelet Count 159 10^3/uL (150-450); Red Blood Count 3.79 10^6 /uL (4.18-5.48); Red Cell Distribution Width 14 % (10-15); White Blood Count 4.2 10^3/uL (3.5-10.8)
[2019-05-14 20:35] LABS: INR 1.37 (0.82-1.09)
[2019-05-14 20:40] LABS: Albumin/Globulin Ratio 1.4 (1-3); BUN/Creatinine Ratio 27.8 (8-20); Calcium 8.9 mg/dL (8.6-10.3); EGFR African American 80.9 (>60); EGFR Non-African American 66.8 (>60); Globulin 2.8 g/dL (2-4); Potassium 4.3 mmol/L (3.5-5.0); Total Bilirubin 0.8 mg/dL (0.2-1.0); Total Protein 6.8 g/dL (6.4-8.9)
[2019-05-14] MEDS ORDERED: Oxymetazoline 0.05% NASAL SPR* 15 ML BTL BOTH NARES ONE (20:43)
[2019-05-14] MEDS ORDERED: Tranexamic Acid 1,000 MG/10 ML SDV TOPICAL ONE (20:48)
[2019-05-14] MEDS ORDERED: Lidocaine 4% GEL* 10 GM TUBE TOPICAL ONE (20:49)
[2019-05-14] MEDS ORDERED: Lidocaine 2% JELLY* 6 ML JELLY TOPICAL ONE ×2 (21:00→21:11)
[2019-05-14] MEDS ORDERED: Amoxicillin/Clavulanate TAB* 875 MG PO ONE (21:23)
[2019-05-14 22:17] VITALS: BP 133/97
== END 2019-05-14 22:19 | disposition home or self-care (01) ==
LOC: ED 19:02
DX: S02.2XXA Fracture of nasal bones, initial encounter for closed fracture (principal); R04.0 Epistaxis; Y09 Assault by unspecified means; Y92.9 Unspecified place or not applicable; Z95.0 Presence of cardiac pacemaker; Z79.899 Other long term (current) drug therapy; Z87.891 Personal history of nicotine dependence
CPT/HCPCS: 36415; 70450; 70486; 72125; 80053; 85025; 85610; 99283; A9270-GY

== ENCOUNTER 2019-05-23 22:54 | Emergency (ER) | payer MEDICARE, MEDICAID ==
--- NOTE | 2019-05-23 23:38 | ED ---
Substance Abuse/Use - HPI Summary HPI Summary: Pt found on ground in front of [employer] by [place] [employer]. Pt intoxicated. Skin tear noted to left forearm Last tetanus in 2017 per records. At time of interview pt denies any pain, SOB, or chest pain. States no injury to head, but that his left arm hurts to touch. When asked if he has had anything to drink today he says "no, but I could use one more" - History Of Current Complaint Chief Complaint: EDSubstanceAbuse Stated Complaint: ETOH PER EMS Time Seen by Provider: 05/23/19 23:38 Hx Obtained From: EMS Hx From Patient Unobtainable Due To: Altered Mental Status - Allergies/Home Medications Allergies/Adverse Reactions: Allergies Allergy/AdvReac Type Severity Reaction Status Date / Time No Known Allergies Allergy Verified 05/23/19 23:17 PMH/Surg Hx/FS Hx/Imm Hx Endocrine/Hematology History: Denies: Hx Anticoagulant Therapy, Hx Diabetes, Hx Thyroid Disease Cardiovascular History: Reports: Hx Pacemaker/ICD Denies: Hx Hypertension Respiratory History: Denies: Hx Asthma, Hx Chronic Obstructive Pulmonary Disease (COPD) History: Denies: Hx Renal Disease Neurological History: Denies: Hx Dementia, Hx Seizures Psychiatric History: Denies: Hx Substance Abuse - Surgical History Surgery Procedure, Year, and Place: OPEN HEART, PACER - Immunization History Date of Tetanus Vaccine: 2016 Date of Influenza Vaccine: HUBER Infectious Disease History: No Infectious Disease History: Denies: Hx Hepatitis, Hx Human Immunodeficiency Virus (HIV), Traveled Outside the [place] in Last 30 Days - Family History Known Family History: Positive: Unknown - level 5 caveat - pt is intoxicated - Social History Alcohol Use: Daily Alcohol Amount: " I don't keep track of how much beer i drink - today not enough " 2 22oz Hx Substance Use: No Substance Use Type: Reports: None Hx Tobacco Use: Yes Smoking Status (MU): Former Smoker Review of Systems Constitutional: Other - Intoxicated Cardiovascular: Negative Respiratory: Negative Skin: Other - Skin tear left forearm Neurological: Other - Intoxicated All Other Systems Reviewed And Are Negative: No Physical Exam - Summary Physical Exam Summary: GENERAL: NAD. Intoxicated rambling SKIN: LEFT FOREARM: Superficial skin tear. Clean appearing. No scalp or facial wounds appreciated. HEENT: Head: AT/NC Eyes: PERRLA. EOM intact. Ears: Hearing grossly normal. TMs intact, no bulging, erythema, or edema. Throat: Posterior oropharynx without exudates, erythema, or tonsillar enlargement. Uvula midline. NECK: Supple. Nontender. No lymphadenopathy. CHEST: CTAB. No r/r/w. No accessory muscle use. Breathing comfortably and in no distress. CV: RRR. Without m/r/g. Pulses intact. Brisk cap refill. ABDOMEN: Soft. NTTP. No distention or guarding. Bowel sounds present MSK: FROM and 5/5 strength throughout. NEURO: Intoxicated. Pt is responsive to verbal simple directions and follows two step commands Triage Information Reviewed: Yes Vital Signs On Initial Exam: Initial Vitals Temp Pulse Resp BP Pulse Ox 98.0 F 79 18 145/96 100 05/23/19 23:07 05/23/19 23:07 05/23/19 23:07 05/23/19 23:07 05/23/19 23:07 Vital Signs Reviewed: Yes Diagnostics - Vital Signs Vital Signs Temp Pulse Resp BP Pulse Ox 05/23/19 23:07 98.0 F 79 18 145/96 100 - Laboratory Lab Statement: Any lab studies that have been ordered have been reviewed, and results considered in the medical decision making process. Course/Dx - Course Course Of Treatment: Initial exam reveals no traumatic head injury or evidence of hitting his head. Left forearm with superficial skin tear - FROM. Will await until pt is more sober to further clinically assess mentation. - Diagnoses Provider Diagnoses: Intoxication Discharge ED - Sign-Out/Discharge Documenting (check all that apply): Sign-Out Patient Signing out patient TO: Gabriela Munoz - Discharge Plan Referrals: Steven Cabello MD [Primary Care Provider] -
--- NOTE | 2019-05-24 04:11 | ED ---
Progress - Progress Note Progress Note: Patient is a sign out upon shift change at 0230 from NIRAJ Méndez to Dr. Munoz pending sobriety re-eval. A 0430 Patient is alert and oriented X3 normal gate discharged to home. Course/Dx - Course Course Of Treatment: Patient is a sign out upon shift change at 0230 from NIRAJ Méndez to Dr. Munoz pending sobriety re-eval. A 0430 Patient is alert and oriented X3 normal gate discharged to home. - Diagnoses Provider Diagnoses: Intoxication, Acute alcohol intoxication Discharge ED - Sign-Out/Discharge Documenting (check all that apply): Patient Departure - discharge Patient Received Moderate/Deep Sedation with Procedure: No - Discharge Plan Condition: Stable Disposition: HOME Patient Education Materials: Alcohol Intoxication (ED) Referrals: Steven Cabello MD [Primary Care Provider] - 3 Days Additional Instructions: Please follow up with your primary care physician within three days. Please return to ED for any new or worsening symptoms. - Billing Disposition and Condition Condition: STABLE Disposition: Home - Attestation Statements Document Initiated by Edgardibcam: Yes Documenting Scribe: Mecca Flores Provider For Whom Shasta is Documenting (Include Credential): Dr. Gabriela Munoz MD Scribe Attestation: Mecca Dorado scribed for Dr. Gabriela Munoz MD on 05/24/19 at 0508. Scribe Documentation Reviewed: Yes Provider Attestation: The documentation as recorded by the Mecca crews accurately reflects the service I personally performed and the decisions made by me, Dr. Gabriela Munoz MD Status of Scribe Document: Viewed
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
--- OUTSIDE RECORDS SUMMARY | 2019-05-24 04:14 | XMS REPORT | Continuity of Care Document ---
:1945 External Reference #:[id number] Author Name Weston Sapp MD Address [address] [facility] [address] [address] Care Team Providers Name Role Phone Natalya Lopez NP Care Team Information Physical Integration Practitioner [phone] Problems Description No Information Available Social History Type Date Description Comments Sex Unknown Tobacco Use Start: Unknown End: Unknown Former Cigarette Smoker Tobacco Use Start: Unknown Never Smoked Cigars Tobacco Use Start: Unknown Never Smoked A Pipe Smokeless Tobacco Never Used Smokeless Tobacco ETOH Use PT Drinks [place] Daily Allergies, Adverse Reactions, Alerts Description No Known Drug Allergies Medications Active Medications SIG Qnty Indications Ordering Provider Date Metoprolol Succinate Take One Tablet Unknown ER By Mouth Every 25mg Tablets ER 24HR Day Potassium Chloride Take One Tablet Unknown [place] ER By Mouth Every 20Meq Tablets ER Day Furosemide Take One Tablet Unknown 20mg Tablets By Mouth Every Day Eliquis Take One Tablet Unknown 5mg Tablets By Mouth Twice A Day Immunizations Description No Information Available Vital Signs Date Vital Result Comment 05/16/2019 11:40am Weight 145.00 lb Weight 65.772 kg Height 68 inches 5'8" Height in cm's 172.7 cm BMI (Body Mass Index) 22.0 kg/m2 Results Description No Information Available Procedures Description No Information Available Medical Devices Description No Information Available Encounters Description No Information Available Assessments Date Code Description Provider 05/16/2019 S02.2xxA Fracture of nasal bones, initial encounter for Weston Sapp MD closed fracture 05/16/2019 R04.0 Epistaxis Weston Sapp MD Plan of Treatment 05/16/2019 - Weston Sapp MDS02.2xxA Fracture of nasal bones, initial encounter for closed fractureComments:Nasal injury not requiring any surgical management this time reassured vyfxpxqR25.0 EpistaxisComments:The pack was removed. There is no active bleeding. The patient will use a moisturizer in the nose. Functional Status Description No Information Available Mental Status Description No Information Available Referrals Description No Information Available
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
[2019-05-24 04:52] VITALS: BP 131/83
== END 2019-05-24 04:53 | disposition home or self-care (01) ==
LOC: ED 22:54
DX: F10.929 Alcohol use, unspecified with intoxication, unspecified (principal); Z87.891 Personal history of nicotine dependence; Z95.0 Presence of cardiac pacemaker; Z79.01 Long term (current) use of anticoagulants; Z79.899 Other long term (current) drug therapy
CPT/HCPCS: 99283

== ENCOUNTER 2019-05-24 21:53 | Emergency (ER) | payer MEDICARE, MEDICAID ==
[2019-05-24] MEDS ORDERED: NS 0.9% 1000 ML** 1,000 ML IV ONE (22:29)
[2019-05-24 23:19] LABS: ABS Lymphocytes 0.9 10^3/ul (1.0-4.8); ABS Monocytes 0.5 10^3/ul (0-0.8); ABS Neutrophils 2.8 10^3/ul (1.5-7.7); Eosinophil % 0.7 %; Hematocrit 34 % (42-52); Hemoglobin 11.5 g/dL (14.0-18.0); Lymphocyte % 20.3 %; Mean Corpuscular HGB Conc 34 g/dL (31-36); Mean Corpuscular Hemoglobin 34 pg (27-31); Mean Corpuscular Volume 100 fL (80-94); Mean Platelet Volume 8.1 fL (7.4-10.4); Nucleated Red Blood Cells % 0.1; Platelet Count 185 10^3/uL (150-450); Red Cell Distribution Width 14 % (10-15); White Blood Count 4.3 10^3/uL (3.5-10.8)
[2019-05-24 23:24] LABS: INR 0.99 (0.82-1.09)
[2019-05-24 23:35] LABS: Albumin 3.8 g/dL (3.2-5.2); Albumin/Globulin Ratio 1.5 (1-3); BUN/Creatinine Ratio 17.9 (8-20); Calcium 8.5 mg/dL (8.6-10.3); EGFR African American 93.8 (>60); EGFR Non-African American 77.5 (>60); Globulin 2.5 g/dL (2-4); Potassium 3.6 mmol/L (3.5-5.0); Total Bilirubin 0.6 mg/dL (0.2-1.0); Total Protein 6.3 g/dL (6.4-8.9)
[2019-05-24 23:36] LABS: Troponin I 0.03 ng/mL (<0.04)
[2019-05-25] MEDS ORDERED: NS 0.9% 1000 ML** 1,000 ML IV ONE (00:10)
[2019-05-25] MEDS ORDERED: Thiamine INJ* 100 MG, Folic Acid IV* 1 MG, Multiple Vitamin IV ADULT* 10 ML in NS 0.9% ... IV ONE (00:10)
--- NOTE | 2019-05-25 00:14 | ED ---
Head Injury - HPI Summary HPI Summary: This pt is a 74 Y/O M presenting to [facility], brought in by EMS, for a bloody nose he sustained that is still bleeding. Per EMS the pt had multiple falls and was heavily intoxicated when he was picked up. He is on blood thinners. This pt is a level 5 caveat due to his alcohol intoxication. He stated that he had no headache or chest pain. Home Medications Medication Instructions Recorded Confirmed Type Apixaban* [Eliquis*] 5 mg PO BID 10/02/17 05/24/19 History Furosemide TAB* [Lasix TAB*] 20 mg PO DAILY 10/02/17 05/24/19 History Potassium Chlor TAB* [Klor Con ER 20 meq PO DAILY 10/02/17 05/24/19 History TAB*] Metoprolol Succinate XL TAB* 25 mg PO DAILY 09/24/18 05/24/19 History [Toprol XL TAB*] Pravastatin (NF) [Pravachol (NF)] 20 mg PO BEDTIME 09/24/18 05/24/19 History - History Of Current Complaint Chief Complaint: EDSubstanceAbuse Stated Complaint: ETOH, BLOODY NOSE PER EMS Time Seen by Provider: 05/24/19 22:18 Hx Obtained From: Patient Hx From Patient Unobtainable Due To: Other - LEVEL 5 CAVEAT DUE TO ALCOHOL INTOXICATION Mechanism Of Injury: Fall From A Standing Position Onset/Duration: Started Hours Ago Severity Currently: None Pain Intensity: 0 Pain Scale Used: 0-10 Numeric Location of Head Injury: Other: - nose Location: Discrete At: - nose Associated Signs And Symptoms: Epistaxis Anticoagulant Therapy: Blood Thinners - Allergies/Home Medications Allergies/Adverse Reactions: Allergies Allergy/AdvReac Type Severity Reaction Status Date / Time No Known Allergies Allergy Verified 05/24/19 22:01 PMH/Surg Hx/FS Hx/Imm Hx Previously Healthy: Yes Endocrine/Hematology History: Denies: Hx Anticoagulant Therapy, Hx Diabetes, Hx Thyroid Disease Cardiovascular History: Reports: Hx Pacemaker/ICD Denies: Hx Hypertension Respiratory History: Denies: Hx Asthma, Hx Chronic Obstructive Pulmonary Disease (COPD) History: Denies: Hx Renal Disease Neurological History: Denies: Hx Dementia, Hx Seizures Psychiatric History: Denies: Hx Substance Abuse - Surgical History Surgery Procedure, Year, and Place: OPEN HEART, PACER - Immunization History Date of Tetanus Vaccine: 2017 Date of Influenza Vaccine: HUBER Infectious Disease History: No Infectious Disease History: Denies: Hx Hepatitis, Hx Human Immunodeficiency Virus (HIV), Traveled Outside the [place] in Last 30 Days - Family History Known Family History: Positive: Unknown - level 5 caveat - pt is intoxicated - Social History Alcohol Use: Daily Alcohol Amount: " I don't keep track of how much beer i drink - today not enough " 2 22oz Hx Substance Use: No Substance Use Type: Reports: None Hx Tobacco Use: Yes Smoking Status (MU): Former Smoker Review of Systems - ROS Summary Review of Systems Summary: A FULL ROS IS UNOBTAINABLE DUE TO THE PT'S ALCOHOL INTOXICATION Positive: Other - Epistaxis Negative: Chest Pain Negative: Headache All Other Systems Reviewed And Are Negative: No Physical Exam - Summary Physical Exam Summary: General: Well-developed, Well-nourished male. No acute distress. HEENT: Normocephalic, Atraumatic. Eyes: Conjuctiva normal, PERRL. Ecchymosis and swelling bilaterally to under the eyes, Ears: TMs within normal limits. Nares: packing in his left nostril, no active bleeding, and separation of his left nose. Oropharynx: Clear, mucous membranes moist, (-) exudates. Neck: Soft, FROM, (-) lymphadenopathy, (-) thyromegaly, (-) JVD. Cardiovascular: Normal sinus rhythm, (-) murmur. Lungs: Clear to auscultation bilaterally (-) wheezes, (-) rales, (-) rhonchi. Abdomen: Soft, non-tender, non-distended, (-) organomegaly, normal bowel sounds. Back: (-) CVA tenderness Extremities: No edema. Skin: Warm, dry, (-) rash. Neuro: Alert and oriented x3, no focal deficits. Psychiatric: Mood normal, affect normal. A FULL PE IS UNOBTAINABLE DUE TO THE PT BEING HEAVILY INTOXICATED Triage Information Reviewed: Yes Vital Signs On Initial Exam: Initial Vitals Temp Pulse Resp BP Pulse Ox 98.0 F 89 20 127/83 99 05/24/19 21:58 05/24/19 21:58 05/24/19 21:58 05/24/19 21:58 05/24/19 21:58 Vital Signs Reviewed: Yes Diagnostics - Vital Signs Vital Signs Temp Pulse Resp BP Pulse Ox 05/24/19 21:58 98.0 F 89 20 127/83 99 - Laboratory Lab Results: Lab Results 05/24/19 05/24/19 05/24/19 Range/Units 23:01 23:01 23:01 WBC 4.3 (3.5-10.8) 10^3/uL RBC 3.40 L (4.18-5.48) 10^6 /uL Hgb 11.5 L (14.0-18.0) g/dL Hct 34 L (42-52) % MCV 100 H (80-94) fL MCH 34 H (27-31) pg MCHC 34 (31-36) g/dL RDW 14 (10-15) % Plt Count 185 (150-450) 10^3/uL MPV 8.1 (7.4-10.4) fL Neut % (Auto) 66.0 % Lymph % (Auto) 20.3 % [place] % (Auto) 12.1 % Eos % (Auto) 0.7 % Baso % (Auto) 0.9 % Absolute Neuts (auto) 2.8 (1.5-7.7) 10^3/ul Absolute Lymphs (auto) 0.9 L (1.0-4.8) 10^3/ul Absolute Monos (auto) 0.5 (0-0.8) 10^3/ul Absolute Eos (auto) 0.0 (0-0.6) 10^3/ul Absolute Basos (auto) 0.0 (0-0.2) 10^3/ul Absolute Nucleated RBC 0.0 10^3/ul Nucleated RBC % 0.1 INR (Anticoag Therapy) (0.82-1.09) Sodium 142 (135-145) mmol/L Potassium 3.6 (3.5-5.0) mmol/L Chloride 106 (101-111) mmol/L Carbon Dioxide 25 (22-32) mmol/L Anion Gap 11 (2-11) mmol/L BUN 17 (6-24) mg/dL Creatinine 0.95 (0.67-1.17) mg/dL Est GFR ( Amer) 93.8 (>60) Est GFR (Non-Af Amer) 77.5 (>60) BUN/Creatinine Ratio 17.9 (8-20) Glucose 73 (70-100) mg/dL Calcium 8.5 L (8.6-10.3) mg/dL Total Bilirubin 0.60 (0.2-1.0) mg/dL AST 53 H (13-39) U/L ALT 36 (7-52) U/L Alkaline Phosphatase 106 H (34-104) U/L Troponin I 0.03 (<0.04) ng/mL Total Protein 6.3 L (6.4-8.9) g/dL Albumin 3.8 (3.2-5.2) g/dL Globulin 2.5 (2-4) g/dL Albumin/Globulin Ratio 1.5 (1-3) Serum Alcohol 286 H (<10) mg/dL 05/24/19 Range/Units 23:01 WBC (3.5-10.8) 10^3/uL RBC (4.18-5.48) 10^6 /uL Hgb (14.0-18.0) g/dL Hct (42-52) % MCV (80-94) fL MCH (27-31) pg MCHC (31-36) g/dL RDW (10-15) % Plt Count (150-450) 10^3/uL MPV (7.4-10.4) fL Neut % (Auto) % Lymph % (Auto) % [place] % (Auto) % Eos % (Auto) % Baso % (Auto) % Absolute Neuts (auto) (1.5-7.7) 10^3/ul Absolute Lymphs (auto) (1.0-4.8) 10^3/ul Absolute Monos (auto) (0-0.8) 10^3/ul Absolute Eos (auto) (0-0.6) 10^3/ul Absolute Basos (auto) (0-0.2) 10^3/ul Absolute Nucleated RBC 10^3/ul Nucleated RBC % INR (Anticoag Therapy) 0.99 (0.82-1.09) Sodium (135-145) mmol/L Potassium (3.5-5.0) mmol/L Chloride (101-111) mmol/L Carbon Dioxide (22-32) mmol/L Anion Gap (2-11) mmol/L BUN (6-24) mg/dL Creatinine (0.67-1.17) mg/dL Est GFR ( Amer) (>60) Est GFR (Non-Af Amer) (>60) BUN/Creatinine Ratio (8-20) Glucose (70-100) mg/dL Calcium (8.6-10.3) mg/dL Total Bilirubin (0.2-1.0) mg/dL AST (13-39) U/L ALT (7-52) U/L Alkaline Phosphatase (34-104) U/L Troponin I (<0.04) ng/mL Total Protein (6.4-8.9) g/dL Albumin (3.2-5.2) g/dL Globulin (2-4) g/dL Albumin/Globulin Ratio (1-3) Serum Alcohol (<10) mg/dL Result Diagrams: 05/24/19 23:01 05/24/19 23:01 Lab Statement: Any lab studies that have been ordered have been reviewed, and results considered in the medical decision making process. - CT Maxillofacial CT CT Interpretation Completed By: Radiologist Summary of CT Findings: Acute inferior left orbital wall fracture, and inferior lateral left maxillary. sinus fracture. ED Physician has reviewed this report. Cervical Spine CT CT Interpretation Completed By: Radiologist Summary of CT Findings: No acute findings. ED physician has reviewed this report. Brain CT CT Interpretation Completed By: Radiologist Summary of CT Findings: 1. Moderate volume loss and small vessel ischemic changes. 2. No acute intracranial abnormality. 3. Chronic nasal and right orbital floor fracture partially seen. 4. Inferior left orbital wall fracture, inferior lateral left maxillary sinus. fracture, mild intraorbital air, near- complete hemorrhagic opacification of. left maxillary sinus. ED physician has reviewed this report. Head Injury Course/Dx Course Of Treatment: This pt is a 74 Y/O M presenting to [facility], brought in by EMS, for a bloody nose he sustained that is still bleeding. Per EMS the pt had multiple falls and was heavily intoxicated when he was picked up. THIS PT WAS A LEVEL 5 CAVET DUE TO HIS LEVEL OF INTOXICATION. A brief physical exam found that he had Ecchymosis and swelling bilaterally to under the eyes, disheveled upon arrival, packing in his left nostril, no active bleeding, separation of his left nose. He had abnormal lab values in serum alcohol of 286 and AST. His CTs had the following results: Maxillofacial: Acute inferior left orbital wall fracture, and inferior lateral left maxillary. sinus fracture. Cervical Spine: no acute findings. Brain: 1. Moderate volume loss and small vessel ischemic changes. 2. No acute intracranial abnormality. 3. Chronic nasal and right orbital floor fracture partially seen. 4. Inferior left orbital wall fracture, inferior lateral left maxillary sinus. fracture, mild intraorbital air, near-complete hemorrhagic opacification of. left maxillary sinus. His lab results show the following abnormalities: MCV, MCH, Lymphs, Calcium, AST, Alkaline Phosphatase, total protein, Serum Alcohol at 286. He will be a sighn out to Dr. Burr at shift change 0700 05/25/19 pending his sobriety. - Diagnoses Provider Diagnoses: Acute alcohol intoxication, Epistaxis due to trauma Discharge ED - Sign-Out/Discharge Documenting (check all that apply): Sign-Out Patient Signing out patient TO: Pushpa Burr Patient Received Moderate/Deep Sedation with Procedure: No - Discharge Plan Condition: Stable Disposition: HOME Patient Education Materials: Alcohol Intoxication (ED) Referrals: Steven Cabello MD [Primary Care Provider] - Additional Instructions: You were seen in the emergency department for alcohol intoxication with fall. Your head CT did not show any acute changes. If any studies were not completed at the time of discharge you will be called with the relevant results. Please follow up with your primary care doctor in next 2-3 days and return to emergency department for worsening or concerning symptoms. It was a pleasure taking care of you today. - Billing Disposition and Condition Condition: STABLE Disposition: Home - Attestation Statements Document Initiated by Shasta: Yes Documenting Scribe: Victor Manuel Danielson Provider For Whom Shasta is Documenting (Include Credential): Gabriela Munoz MD Scribe Attestation: IVictor Manuel, scribed for Gabriela Munoz MD on 05/25/19 at 1931. Scribe Documentation Reviewed: Yes Provider Attestation: The documentation as recorded by the Victor Manuel crews accurately reflects the service I personally performed and the decisions made by me, Gabriela Munoz MD Status of Scribe Document: Viewed
[2019-05-25 02:52] VITALS: BP 128/76
--- NOTE | 2019-05-25 07:15 | ED ---
Progress - Progress Note Progress Note: Dr. Burr received patient from Dr. Munoz at sign out at 0700 05/25/19 pending patient sobriety. 0711: Dr. Burr checks up on patient. Patient can ambulate and will be discharged. Course/Dx - Course Course Of Treatment: Patient was signed out to Dr. Burr by Dr. Munoz at shift change 0700 05/25/19 after his sobriety. Patient can ambulate and will be discharged. Patient is discharged. - Diagnoses Provider Diagnoses: Acute alcohol intoxication, Epistaxis due to trauma Discharge ED - Sign-Out/Discharge Documenting (check all that apply): Patient Departure - discharge Patient Received Moderate/Deep Sedation with Procedure: No - Discharge Plan Condition: Stable Disposition: HOME Patient Education Materials: Alcohol Intoxication (ED) Referrals: Steven Cabello MD [Primary Care Provider] - Additional Instructions: You were seen in the emergency department for alcohol intoxication with fall. Your head CT did not show any acute changes. If any studies were not completed at the time of discharge you will be called with the relevant results. Please follow up with your primary care doctor in next 2-3 days and return to emergency department for worsening or concerning symptoms. It was a pleasure taking care of you today. - Attestation Statements Document Initiated by Scribe: Yes Documenting Scribe: Louisa Hargrove Provider For Whom Shasta is Documenting (Include Credential): Dr. Pushpa Burr MD Scribe Attestation: Louisa Dorado, scribed for Dr. Pushpa Burr MD on 05/25/19 at 0715. Status of Scribe Document: Ready
== END 2019-05-25 07:31 | disposition home or self-care (01) ==
LOC: ED 21:53
DX: S02.82XA Fracture of other specified skull and facial bones, left side, initial encounter for closed fracture (principal); S02.609A Fracture of mandible, unspecified, initial encounter for closed fracture; F10.129 Alcohol abuse with intoxication, unspecified; R04.0 Epistaxis; Z95.0 Presence of cardiac pacemaker; Z87.891 Personal history of nicotine dependence
CPT/HCPCS: 36415; 70450; 70486; 72125; 80053; 80320; 84484; 85025; 85610; 96365; 96366; 99285; G0480; J3411

== ENCOUNTER 2019-11-14 17:59 | Emergency (ER) | payer MEDICARE, MEDICAID ==
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
[2019-11-14 19:09] LABS: ABS Basophils 0.1 10^3/ul (0-0.2); ABS Lymphocytes 0.9 10^3/ul (1.0-4.8); ABS Monocytes 0.5 10^3/ul (0-0.8); ABS Neutrophils 2.8 10^3/ul (1.5-7.7); Eosinophil % 0.1 %; Hematocrit 42 % (42-52); Lymphocyte % 21.2 %; Mean Corpuscular HGB Conc 34 g/dL (31-36); Mean Corpuscular Hemoglobin 33 pg (27-31); Mean Corpuscular Volume 99 fL (80-94); Mean Platelet Volume 8.3 fL (7.4-10.4); Nucleated Red Blood Cells % 0.1; Platelet Count 188 10^3/uL (150-450); Red Blood Count 4.19 10^6 /uL (4.18-5.48); Red Cell Distribution Width 14 % (10-15); White Blood Count 4.2 10^3/uL (3.5-10.8)
[2019-11-14 19:26] LABS: ALT 30 U/L (7-52); AST 51 U/L (13-39); Albumin 4.3 g/dL (3.2-5.2); Albumin/Globulin Ratio 1.4 (1-3); Alkaline Phosphatase 110 U/L (34-104); Anion Gap 12 mmol/L (2-11); BUN/Creatinine Ratio 22.4 (8-20); Blood Urea Nitrogen 32 mg/dL (6-24); CO2 Carbon Dioxide 24 mmol/L (22-32); Calcium 8.9 mg/dL (8.6-10.3); Chloride 102 mmol/L (101-111); EGFR African American 58.5 (>60); EGFR Non-African American 48.3 (>60); Globulin 3.1 g/dL (2-4); Glucose 95 mg/dL (70-100); Potassium 4.2 mmol/L (3.5-5.0); Sodium 138 mmol/L (135-145); Total Protein 7.4 g/dL (6.4-8.9)
[2019-11-14 20:19] LABS: Urine Appearance Clear; Urine Bilirubin Negative (Negative); Urine Blood Negative (Negative); Urine Color Yellow; Urine Glucose Negative (Negative); Urine Ketones Negative (Negative); Urine Nitrite Negative (Negative); Urine Protein Negative (Negative); Urine Specific Gravity 1.012 (1.010-1.030); Urine Urobilinogen Negative (Negative)
[2019-11-14 20:34] LABS: Alcohol 304 mg/dL (<10); Salicylate < 2.50 mg/dL (<30)
[2019-11-14 20:37] LABS: Acetaminophen 15 mcg/mL
[2019-11-14 20:38] LABS: Urine Benzodiazepine Screen None Detected (None Detect); Urine Opiates Screen None Detected (None Detect)
--- NOTE | 2019-11-14 22:38 | ED ---
Progress - Progress Note Progress Note: This pt is a sign out from Dr. Allan Srivastava MD to Dr. Emerson Jaeger MD at shift change 2200 11/14/2019 pending sobriety and disposition. Course/Dx - Course Course Of Treatment: This pt is a sign out from Dr. Allan Srivastava MD to Dr. Emerson Jaeger MD at shift change 2200 11/14/2019 pending sobriety and disposition. He will be discharged home with a Dx of acute alcohol intoxication. - Diagnoses Provider Diagnoses: Alcohol intoxication Discharge ED - Sign-Out/Discharge Documenting (check all that apply): Patient Departure - discharge , Receiving Sign-Out Receiving patient FROM: Allan Srivastava - Discharge Plan Condition: Improved Disposition: HOME Patient Education Materials: Alcohol Intoxication (ED) Referrals: Steven Cabello MD [Primary Care Provider] - If Needed - Attestation Statements Document Initiated by Scribe: Yes Documenting Scribe: Victor Manuel Travis Provider For Whom Scribe is Documenting (Include Credential): Emerson Jaeger MD Scribe Attestation: Victor Manuel Dorado, scribed for Emerson Jaeger MD on 11/15/19 at 0311. Status of Scribe Document: Ready
[2019-11-15 03:07] VITALS: BP 121/82
== END 2019-11-15 03:21 | disposition home or self-care (01) ==
LOC: ED 17:59
DX: F10.129 Alcohol abuse with intoxication, unspecified (principal); S00.31XA Abrasion of nose, initial encounter; S00.03XA Contusion of scalp, initial encounter; S00.10XA Contusion of unspecified eyelid and periocular area, initial encounter; H92.21 Otorrhagia, right ear; I10 Essential (primary) hypertension; M54.2 Cervicalgia; R94.31 Abnormal electrocardiogram [ECG] [EKG]; Z79.01 Long term (current) use of anticoagulants; Z95.810 Presence of automatic (implantable) cardiac defibrillator; Z79.899 Other long term (current) drug therapy; Z87.891 Personal history of nicotine dependence; X58.XXXA Exposure to other specified factors, initial encounter; Y92.9 Unspecified place or not applicable
CPT/HCPCS: 36415; 70450; 80053; 80307; 80320; 80329; 81003; 83605; 85025; 93005; 99284; G0480

== ENCOUNTER 2019-11-23 18:23 | Emergency (ER) | payer MEDICARE, MEDICAID ==
--- NOTE | 2019-11-23 18:46 | ED ---
Substance Abuse/Use - HPI Summary HPI Summary: 74 year old male presents to the ED by EMS after being found asleep in the [facility] parking lot [employer]. THIS IS A LEVEL 5 CAVEAT DUE TO ETOH INTOXICATION. Patient had been drinking and smelled of ETOH. Patient has a history of ETOH abuse, as well as HLD and HTN. - History Of Current Complaint Chief Complaint: EDSubstanceAbuse Stated Complaint: 2209 PER EMS Time Seen by Provider: 11/23/19 18:34 Hx Obtained From: EMS Ingestion History: Type/Name Of Drug - ETOH Character: Lethargic - Allergies/Home Medications Allergies/Adverse Reactions: Allergies Allergy/AdvReac Type Severity Reaction Status Date / Time No Known Allergies Allergy Verified 05/24/19 22:01 Home Medications: Home Medications Apixaban* [Eliquis*] 5 mg PO BID 10/02/17 [History Confirmed 11/14/19] Furosemide TAB* [Lasix TAB*] 20 mg PO DAILY 10/02/17 [History Confirmed 11/14/19 ] Potassium Chlor TAB* [Klor Con ER TAB*] 20 meq PO DAILY 10/02/17 [History Confirmed 11/14/19] Metoprolol Succinate XL TAB* [Toprol XL TAB*] 25 mg PO DAILY 09/24/18 [History Confirmed 11/14/19] Pravastatin (NF) [Pravachol (NF)] 20 mg PO BEDTIME 09/24/18 [History Confirmed 11/14/19] PMH/Surg Hx/FS Hx/Imm Hx Endocrine/Hematology History: Reports: Other Endocrine/Hematological Disorders - hyperlipidemia Denies: Hx Anticoagulant Therapy, Hx Diabetes, Hx Thyroid Disease Cardiovascular History: Reports: Hx Hypertension, Hx Pacemaker/ICD Respiratory History: Denies: Hx Asthma, Hx Chronic Obstructive Pulmonary Disease (COPD) History: Denies: Hx Renal Disease Neurological History: Denies: Hx Dementia, Hx Seizures Psychiatric History: Reports: Hx Substance Abuse - ETOH - Surgical History Surgery Procedure, Year, and Place: OPEN HEART, PACER. femur fx - Immunization History Date of Tetanus Vaccine: 2017 Date of Influenza Vaccine: HUBER Infectious Disease History: No Infectious Disease History: Denies: Hx Hepatitis, Hx Human Immunodeficiency Virus (HIV), Traveled Outside the [place] in Last 30 Days - Family History Known Family History: Positive: Unknown - level 5 caveat - FHx is limited b/c patient is intoxicated - Social History Alcohol Use: Daily Alcohol Amount: " I don't keep track of how much beer i drink - today not enough " 2 22oz Hx Substance Use: No Substance Use Type: Reports: None Hx Tobacco Use: Yes Smoking Status (MU): Former Smoker Review of Systems Negative: Fever Positive: Other - lethargic All Other Systems Reviewed And Are Negative: No Physical Exam - Summary Physical Exam Summary: This is a level 5 caveat. Appearance: The patient is well-nourished in no acute distress and in no acute pain. Disheveled and unkempt. Skin: The skin is warm and dry, and skin color reflects adequate perfusion. Old abrasion on right elbow with mild erythema. HEENT: The head is normocephalic and atraumatic. The pupils are equal and reactive. The conjunctivae are clear and without drainage. Nares are patent and without drainage. Mouth reveals moist mucous membranes, and the throat is without erythema and exudate. The external ears are intact. The ear canals are patent and without drainage. The tympanic membranes are intact. Neck: The neck is supple with full range of motion and non-tender. There are no carotid bruits. There is no neck vein distension. Respiratory: Chest is non-tender. Lungs are clear to auscultation and breath sounds are symmetrical and equal. Cardiovascular: Heart is regular rate and rhythm. There is no murmur or rub auscultated. There is no peripheral edema and pulses are symmetrical and equal. Abdomen: The abdomen is soft and non-tender. There are normal bowel sounds heard in all four quadrants and there is no organomegaly palpated. Musculoskeletal: There is no back tenderness noted. Extremities are non-tender with full range of motion. There is good capillary refill. There is no peripheral edema or calf tenderness elicited. Neurological: Patient is alert and oriented to person, place and time. The patient has symmetrical motor strength in all four extremities. Cranial nerves are grossly intact. Deep tendon reflexes are symmetrical and equal in all four extremities. Psychiatric: The patient has an appropriate affect and does not exhibit any anxiety or depression. Triage Information Reviewed: Yes Vital Signs On Initial Exam: Initial Vitals Temp Pulse Resp BP Pulse Ox 98.3 F 63 18 118/87 98 11/23/19 18:36 11/23/19 18:36 11/23/19 18:36 11/23/19 18:36 11/23/19 18:36 Vital Signs Reviewed: Yes Completion Of Physical Exam Limited Due To: Level 5 Procedures - Sedation Patient Received Moderate/Deep Sedation with Procedure: No Diagnostics - Vital Signs Vital Signs Temp Pulse Resp BP Pulse Ox 11/23/19 18:36 98.3 F 63 18 118/87 98 - Laboratory Result Diagrams: 11/23/19 18:43 11/23/19 18:43 Lab Statement: Any lab studies that have been ordered have been reviewed, and results considered in the medical decision making process. Course/Dx - Course Course Of Treatment: [facility] Long[facility] He was responsive on arrival but clearly intoxicated. His blood alcohol returned at 300 about 1830 and we're waiting for him to sober up at this time. There was no sign of acute trauma. He has an abrasion on his right elbow that looks to be several days old and not quite infected yet. - Diagnoses Provider Diagnoses: Alcohol abuse Discharge ED - Sign-Out/Discharge Documenting (check all that apply): Sign-Out Patient Signing out patient TO: Gabriela Munoz - Signing out patient to Dr. Munoz at change of shifts at 2200 on 11/23/19. - Discharge Plan Referrals: Steven Cabello MD [Primary Care Provider] - - Attestation Statements Document Initiated by Shasta: Yes Documenting Scribe: Daryl Ellis Provider For Whom Time is Documenting (Include Credential): Dr. Emerson Vegas Attestation: I, Daryl Ellis, scribed for Dr. Emerson Vargas on 11/23/19 at 2142. Scribe Documentation Reviewed: Yes Provider Attestation: The documentation as recorded by the sundeepibDaryl levy accurately reflects the service I personally performed and the decisions made by me, Dr. Emerson Vargas Status of Scribe Document: Viewed
[2019-11-23 18:53] LABS: ABS Eosinophils 0.1 10^3/ul (0-0.6); ABS Lymphocytes 1.2 10^3/ul (1.0-4.8); ABS Monocytes 0.5 10^3/ul (0-0.8); ABS Neutrophils 2.1 10^3/ul (1.5-7.7); Eosinophil % 1.4 %; Hematocrit 38 % (42-52); Hemoglobin 13.1 g/dL (14.0-18.0); Lymphocyte % 31.6 %; Mean Corpuscular HGB Conc 34 g/dL (31-36); Mean Corpuscular Hemoglobin 34 pg (27-31); Mean Corpuscular Volume 98 fL (80-94); Mean Platelet Volume 8.6 fL (7.4-10.4); Nucleated Red Blood Cells % 0.1; Platelet Count 142 10^3/uL (150-450); Red Blood Count 3.89 10^6 /uL (4.18-5.48); Red Cell Distribution Width 14 % (10-15); White Blood Count 3.8 10^3/uL (3.5-10.8)
[2019-11-23 19:08] LABS: ALT 28 U/L (7-52); AST 40 U/L (13-39); Albumin 3.9 g/dL (3.2-5.2); Albumin/Globulin Ratio 1.3 (1-3); Alkaline Phosphatase 105 U/L (34-104); Anion Gap 7 mmol/L (2-11); BUN/Creatinine Ratio 20.9 (8-20); Blood Urea Nitrogen 18 mg/dL (6-24); CO2 Carbon Dioxide 27 mmol/L (22-32); Calcium 8.7 mg/dL (8.6-10.3); Chloride 106 mmol/L (101-111); EGFR African American 105.2 (>60); EGFR Non-African American 86.9 (>60); Globulin 2.9 g/dL (2-4); Glucose 84 mg/dL (70-100); Potassium 3.9 mmol/L (3.5-5.0); Sodium 140 mmol/L (135-145); Total Protein 6.8 g/dL (6.4-8.9)
[2019-11-23 19:09] LABS: Acetaminophen < 15 mcg/mL; Alcohol 308 mg/dL (<10); Salicylate < 2.50 mg/dL (<30)
[2019-11-23 19:23] LABS: Urine Appearance Clear; Urine Bilirubin Negative (Negative); Urine Blood 1+ (Negative); Urine Color Colorless; Urine Glucose Negative (Negative); Urine Ketones Negative (Negative); Urine Nitrite Negative (Negative); Urine Protein Negative (Negative); Urine Specific Gravity 1.002 (1.010-1.030); Urine Urobilinogen Negative (Negative)
[2019-11-23 19:24] LABS: Urine Bacteria Absent (Absent); Urine Red Blood Cell Absent (Absent); Urine White Blood Cell Absent (Absent)
[2019-11-23 19:43] LABS: Urine Benzodiazepine Screen None Detected (None Detect); Urine Opiates Screen None Detected (None Detect)
--- NOTE | 2019-11-23 22:00 | ED ---
Progress - Progress Note Progress Note: This pt is a sign out to Dr. Gabriela Munoz MD from Dr. Emerson Vargas MD at 2200 11/23/2019 pending sobriety. Course/Dx - Course Course Of Treatment: 74-year-old male signed out at change of shift to nm after he was brought in when found sleeping in front of [employer]. Blood alcohol 300. Signed out at change of shift to nm awaiting sobriety. Patient awoke very irritable and agitated. Swearing at people. He is clinically sober. Walking without difficulty. Alert and oriented 3. Discharged. - Diagnoses Provider Diagnoses: Alcohol abuse, Alcohol intoxication Discharge ED - Sign-Out/Discharge Documenting (check all that apply): Patient Departure - Discharge Plan Condition: Good Disposition: HOME Patient Education Materials: Alcohol Intoxication (ED) Referrals: Steven Cabello MD [Primary Care Provider] - 2 Days Additional Instructions: PLEASE FOLLOW UP WITH YOUR PRIMARY CARE PHYSICIAN IN 1-3 DAYS AND RETURN TO THE EMERGENCY DEPARTMENT FOR ANY NEW OR WORSENING SYMPTOMS - Billing Disposition and Condition Condition: GOOD Disposition: Home - Attestation Statements Document Initiated by Edgardibe: Yes Documenting Scribe: Victor Manuel Danielson Provider For Whom Shasta is Documenting (Include Credential): Gabriela Munoz MD Scribe Attestation: IVictor Manuel scribed for Gabriela Munoz MD on 11/25/19 at 0255. Scribe Documentation Reviewed: Yes Provider Attestation: The documentation as recorded by the Victor Manuel crews accurately reflects the service I personally performed and the decisions made by nm, Gabriela Munoz MD Status of Scribe Document: Viewed
[2019-11-24 05:45] VITALS: BP 0/0
== END 2019-11-24 05:44 | disposition home or self-care (01) ==
LOC: ED 18:23
DX: F10.129 Alcohol abuse with intoxication, unspecified (principal); I10 Essential (primary) hypertension; Y90.8 Blood alcohol level of 240 mg/100 ml or more; Z95.0 Presence of cardiac pacemaker; Z79.01 Long term (current) use of anticoagulants; Z79.899 Other long term (current) drug therapy; Z87.891 Personal history of nicotine dependence; E78.5 Hyperlipidemia, unspecified
CPT/HCPCS: 36415; 80053; 80307; 80320; 80329; 81003; 81015; 85025; 99282; G0480